=== PATIENT | male | born 1980 | race Caucasian/White ===

== ENCOUNTER 2020-10-03 07:55 | Emergency (ER) | payer BC ==
[~2020-10-03] VITALS: Ht 193 cm; Wt 86.2 kg
[~2020-10-03 07:55] MED LIST: NORCO 5-325 TA1 EACH PO
[2020-10-03] MEDS ORDERED: PREDNISONE 5 MG5 M1 PO (09:07)
[2020-10-03] MEDS ORDERED: FLEXERIL PO (09:07)
[2020-10-03 09:17] VITALS: BP 113/75
== END 2020-10-03 09:20 | disposition home or self-care (01) ==
LOC: M.ERS 07:55
DX: M25.511 Pain in right shoulder (principal); M47.812 Spondylosis without myelopathy or radiculopathy, cervical region; R20.0 Anesthesia of skin; R20.2 Paresthesia of skin; F17.210 Nicotine dependence, cigarettes, uncomplicated; X50.1XXA Overexertion from prolonged static or awkward postures, initial encounter; Y93.89 Activity, other specified; Y92.69 Other specified industrial and construction area as the place of occurrence of the external cause; Y99.8 Other external cause status

== ENCOUNTER → 2021-03-28 | Outpatient (CLI) | payer BC ==
[~2021-03-28] MED LIST changes: +FLEXERIL PO; +IBUPROFEN 200200 M1 PO; +NORCO5 PO; +PREDNISONE 5 MG5 M1 PO
== END ==
LOC: M.LAB 10:04
PROVIDERS: ATTEND Surgery
DX: Z01.812 Encounter for preprocedural laboratory examination (principal); Z20.822 Contact with and (suspected) exposure to COVID-19

== ENCOUNTER → 2021-03-29 | Day surgery (SDC) | payer BC ==
--- NOTE | ~2021-03-29 | OP ---
[facility] [address] [place] [address] OPERATIVE REPORT Name: FABIONERIS Buckner Room: [facility]#: [id number] Admission: 03/29/21 Attend Phys: Nacho Thrasher Discharge: Date of : 82 Report #: [id number] THIS REPORT FOR: cc: Thad Child Vincent R. DO Patterson,Nacho Saldaña MD ~ DATE OF SURGERY: 03/29/2021 PREOPERATIVE DIAGNOSIS: Right inguinal hernia. POSTOPERATIVE DIAGNOSIS: Right inguinal hernia. OPERATION: Laparoscopic repair of right inguinal hernia with mesh. SURGEON: Nacho Thrasher MD ANESTHESIA: General. ESTIMATED BLOOD LOSS: Minimal. SPECIMENS: None. DESCRIPTION OF PROCEDURE: After informed consent was obtained, the patient was brought to the operating room and placed supine. SCDs were placed and working, preoperative antibiotics were administered, general anesthesia was induced. The abdomen was prepped and draped in the usual sterile fashion. A 10 mm incision was made above the umbilicus. Fascia was incised and a trocar was placed. Pneumoperitoneum was established. A right and left lower quadrant 5 mm trocars were placed. The patient was placed in the Trendelenburg position. The peritoneum at the right ASIS was scored. Peritoneum was then incised and reflected inferiorly. The pubic bone was then identified. I identified the cord structures. He had a large indirect hernia. This was all reduced. I was able to fully reduce the hernia sac. I then placed a large Bard 3DMax midweight mesh. It was tacked to Estuardo's ligament with 2 absorbable tacks. I then reapproximated the peritoneum with a 2-0 V-Loc suture. The mesh was 100% covered at this time. The ports were then removed under direct vision. The fascia at the umbilicus was closed with a [id number] 0 Vicryl. Skin was closed with 4-0 Monocryl. Incisions were dressed with Steri-Strips. COMPLICATIONS: [place] [address] OPERATIVE REPORT Name: NERIS MCCARTHY Room: [facility]#: [id number] Admission: 03/29/21 Attend Phys: Nacho Thrasher Discharge: Date of : 82 Report #: [id number] DISPOSITION: The patient was taken to recovery in satisfactory condition. By: [id number] Thrasher MD /nt
[2021-03-29 06:45] LABS: HEMATOCRIT 43.3 % (42.0-52.0); HEMOGLOBIN 14.8 gm/dL (14.0-18.0); MCH 28.6 pg (26.0-34.0); MCHC 34.1 g/dL (28.0-37.0); MPV 8.5 fl. (7.2-11.1); RBC 5.15 mil/uL (4.50-6.00); RDW-CV 13.2 % (10.5-14.5); WBC 5.4 thou/uL (4.0-11.0)
[2021-03-29 07:03] LABS: CALCIUM 8.2 mg/dL (8.5-10.1)
== END | disposition home or self-care (01) ==
LOC: M.SUR 05:57
PROVIDERS: ATTEND Surgery
DX: K40.90 Unilateral inguinal hernia, without obstruction or gangrene, not specified as recurrent (principal); R10.9 Unspecified abdominal pain; F17.210 Nicotine dependence, cigarettes, uncomplicated; Z98.890 Other specified postprocedural states; Z79.899 Other long term (current) drug therapy; Z20.822 Contact with and (suspected) exposure to COVID-19